=== PATIENT | female | born 1995 | race Caucasian/White ===

== ENCOUNTER 2018-09-25 14:07 | Outpatient (CLI) | payer OTHER ==
--- NOTE | 2018-09-25 16:16 | ULT ---
ULTRASOUND OBSTETRICAL COMPLETE: DATE: 09/25/2018 HISTORY: "Z34.82, encounter for supervision of other normal , second trimester" anatomical survey [id number] female. FINDINGS: number: toro lie: Vertex Maternal cervix: 4 cm. Closed. Placenta: Posterior. No previa. Amniotic fluid volume: NANCY = 12cm heart rate: 158 bpm The following anatomy is visualized, with no evidence of anomalies: Head, cerebellum, lateral ventricles, four-chamber heart, stomach, kidneys, cord insertion, bladder, cervical spine, thoracic spine, lumbar spine, sacrum, nose and lips, upper extremities, lower extreme venous, and three-vessel cord. biometry: Biparietal diameter (BPD): 4.6 cm 20 w 0 d Head circumference (HC): 17.0 cm 19 w 5 d Abdominal circumference (AC): 14.3 cm 19 w 5 d Femur length (FL): 3.2 cm 20 w 0 d Average ultrasound age (AUA): 19 w 6 d Estimated date of delivery (JAVIER): 02/13/2019 Estimated weight (EFW): 314 g +/- 46 g IMPRESSION: 1) Live 2nd trimester intrauterine gestation. 2) Estimated gestational age of 19 weeks, 6 days 3) cephalic lie. 4) no anatomic abnormality identified.
== END 2018-09-25 14:08 | disposition home or self-care (01) ==
LOC: BICULT 14:07
PROVIDERS: ATTEND Family Medicine
DX: Z34.82 Encounter for supervision of other normal pregnancy, second trimester (principal); Z3A.19 19 weeks gestation of pregnancy
CPT/HCPCS: 76805

== ENCOUNTER 2019-02-03 19:30 | Inpatient (IN) | payer OTHER ==
[~2019-02-03 19:30] MED LIST: Bupivacaine/Epinephrine 0.25% 30 ML VIAL ONE
[2019-02-03 22:54] VITALS: BMI 29.2
[2019-02-03] MEDS ORDERED: HYDROcodone/Acetaminophen 5/325 mg Tablet PO PRN (22:54)
[2019-02-03] MEDS ORDERED: Butorphanol Tartrate 1 MG/ML VIAL SLOW IVP PRN (22:54)
[2019-02-03] MEDS ORDERED: Carboprost 250 MCG/ML AMP IM PRN (22:54)
[2019-02-03] MEDS ORDERED: Diphenoxylate HCl/Atropine Tablet PO PRN (22:54)
[2019-02-03] MEDS ORDERED: Ibuprofen 800 MG TAB PO PRN (22:54)
[2019-02-03] MEDS ORDERED: Lidocaine 1% (PF) 30 ML VIAL SC PRN (22:54)
[2019-02-03] MEDS ORDERED: Promethazine HCl 25 MG/ML VIAL IM PRN (22:54)
[2019-02-03] MEDS ORDERED: Methylergonovine 0.2 MG/ML VIAL IM PRN (22:54)
[2019-02-03] MEDS ORDERED: Ondansetron PF 4 MG/2 ML Vial IVP PRN (22:54)
[2019-02-03] MEDS ORDERED: Misoprostol 200 MCG TAB PR PRN (22:54)
[2019-02-03] MEDS ORDERED: NS w/ Oxytocin 10 units 500 ML IV SCH (22:54)
[2019-02-03] MEDS ORDERED: hydrALAZINE 20 MG/ML VIAL SLOW IVP PRN (22:54)
[2019-02-03] MEDS ORDERED: NS / Oxytocin 40 units/1000ml 1,000 ML IV PRN (22:54)
[2019-02-03] MEDS: Lactated Ringer's 1,000 ML IV SCH (23:15)
[2019-02-03 23:30] LABS: Hemoglobin 11.2 g/dL (12.0-16.0); Mean Corpuscular HGB CONC 33.5 g/dL (32.0-36.0); Mean Corpuscular Hemoglobin 27.5 pg (27.0-31.0); Mean Corpuscular Volume 82.2 fL (78.0-98.0); Mean Platelet Volume 7.6 fL (7.4-10.4); Platelet Count 309 thou/uL (130-400); RBC Distribution Width 13.1 % (11.5-14.5); Red Blood Cell (RBC) Count 4.08 mill/uL (4.20-5.40); White Blood Cell (WBC) Count 18.7 thou/uL (4.8-10.8)
[2019-02-03] MEDS: NS w/ Oxytocin 10 units 500 ML IV SCH (23:54)
[2019-02-04 00:06] LABS: HBSAg Index 0.16 S/CO (0-0.99); Hep B Surf Ag Non-Reactive S/CO (NonReactive); Syphilis Antibody Nonreactive (Nonreactive); Syphilis Antibody Index 0.07 S/CO (<1.00 Non-Reactive)
[2019-02-04] MEDS: Misoprostol 100 MCG TAB PO SCH ×4 (00:10→14:56)
[2019-02-04] MEDS ORDERED: Fentanyl 4 mcg/Bup 0.1% Cadd 100 ML ONE (04:16)
[2019-02-04] MEDS ORDERED: Promethazine HCl 25 MG/ML VIAL IM PRN ×2 (05:02→12:52)
[2019-02-04] MEDS ORDERED: Naloxone HCl 0.4 mg/ml Vial IVP PRN ×2 (05:02)
[2019-02-04] MEDS ORDERED: Lactated Ringer's 500 ML IV PRN (05:02)
[2019-02-04] MEDS ORDERED: diphenhydrAMINE 50 MG/ML VIAL IVP PRN (05:02)
[2019-02-04] MEDS ORDERED: ePHEDrine/0.9% NaCl/PF SYRINGE 50 mg/10 ml SLOW IVP PRN (05:02)
[2019-02-04] MEDS ORDERED: Ondansetron PF 4 MG/2 ML Vial IVP PRN ×2 (05:02→12:52)
[2019-02-04] MEDS ORDERED: Acetaminophen 325 MG TAB PO PRN (05:02)
[2019-02-04] MEDS ORDERED: Fentanyl 4 mcg/Bupivacaine 0.1% Cassette 100 ML EPIDURAL SCH (05:15)
[2019-02-04] MEDS ORDERED: Communication Order-Pharmacy FS SCH (05:15)
[2019-02-04] MEDS: NS w/ Oxytocin 10 units 500 ML IV SCH (05:40)
[2019-02-04] MEDS: Ampicillin 2 GM in Sodium Chloride 0.9% 100 ML IVPB SCH ×3 (08:15→21:53)
[2019-02-04] MEDS: Gentamicin Sulfate 270 MG in Sodium Chloride 0.9% 100 ML IVPB SCH (09:30)
[2019-02-04] MEDS ORDERED: Milk Of Magnesia 30 ML UDCUP PO PRN (12:52)
[2019-02-04] MEDS ORDERED: NS / Oxytocin 40 units/1000ml 1,000 ML IV SCH (12:52)
[2019-02-04] MEDS ORDERED: HYDROcodone/Acetaminophen 5/325 mg Tablet PO PRN ×2 (12:52)
[2019-02-04] MEDS ORDERED: diphenhydrAMINE 25 MG CAP PO PRN (12:52)
[2019-02-04] MEDS ORDERED: Bisacodyl 10 MG SUPP PR PRN (12:52)
[2019-02-04] MEDS ORDERED: Lanolin Ointment 7 GM TUBE TOP PRN (12:52)
[2019-02-04] MEDS ORDERED: hydrALAZINE 20 MG/ML VIAL SLOW IVP PRN (12:52)
[2019-02-04] MEDS ORDERED: Preparation H Ointment 28 GM TUBE PR PRN (12:52)
[2019-02-04] MEDS: Lactated Ringer's 1,000 ML IV SCH (14:55)
[2019-02-04] MEDS: Ibuprofen 800 MG TAB PO SCH ×2 (14:58→21:55)
[2019-02-04] MEDS: Ferrous Sulfate 325 MG TAB PO SCH (16:51)
[2019-02-04] MEDS: Docusate Calcium (SURFAK) 240 MG CAP PO SCH (21:55)
[2019-02-05] MEDS: Ampicillin 2 GM in Sodium Chloride 0.9% 100 ML IVPB SCH ×4 (04:08→21:32)
[2019-02-05 05:05] LABS: Hemoglobin 10.6 g/dL (12.0-16.0); Mean Corpuscular HGB CONC 33.3 g/dL (32.0-36.0); Mean Platelet Volume 7.7 fL (7.4-10.4); Platelet Count 255 thou/uL (130-400); RBC Distribution Width 13.5 % (11.5-14.5); Red Blood Cell (RBC) Count 3.79 mill/uL (4.20-5.40); White Blood Cell (WBC) Count 25.7 thou/uL (4.8-10.8)
[2019-02-05] MEDS: Ibuprofen 800 MG TAB PO SCH ×3 (05:34→21:31)
[2019-02-05] MEDS: Prenatal Vitamin 1 TAB PO SCH (08:46)
[2019-02-05] MEDS: Docusate Calcium (SURFAK) 240 MG CAP PO SCH ×2 (08:46→21:32)
[2019-02-05] MEDS: Ferrous Sulfate 325 MG TAB PO SCH ×2 (08:48→16:37)
[2019-02-05] MEDS ORDERED: Adacel (T-DAP) 0.5 ML SYRINGE IM ONE (09:00)
[2019-02-05] MEDS: Gentamicin Sulfate 270 MG in Sodium Chloride 0.9% 100 ML IVPB SCH (09:46)
[2019-02-05] MEDS ORDERED: Sodium Chloride 0.9% 10 ML ONE (21:33)
[2019-02-06] MEDS: Ampicillin 2 GM in Sodium Chloride 0.9% 100 ML IVPB SCH ×2 (04:16→10:06)
[2019-02-06] MEDS ORDERED: Sodium Chloride 0.9% 10 ML ONE ×2 (04:17→08:58)
[2019-02-06] MEDS: Ibuprofen 800 MG TAB PO SCH (05:29)
[2019-02-06 08:30] VITALS: BP 111/71; TEMP 97.6
[2019-02-06] MEDS: Gentamicin Sulfate 270 MG in Sodium Chloride 0.9% 100 ML IVPB SCH (08:55)
[2019-02-06] MEDS: Docusate Calcium (SURFAK) 240 MG CAP PO SCH (08:55)
[2019-02-06] MEDS: Prenatal Vitamin 1 TAB PO SCH (08:55)
[2019-02-06] MEDS: Ferrous Sulfate 325 MG TAB PO SCH (08:56)
--- NOTE | 2019-02-07 22:27 | PQF ---
BRADLY FARRELL ROLAND R MD [id number] CLINICAL DOCUMENTATION CLARIFICATION FORM: POST DISCHARGE Addendum to original discharge summary date: ____ Late entry note date: __ DATE: 02/07/19 ATTN: Shine Chandler Please exercise your independent, professional judgment in responding to the clarification form. Clinical indicators are provided on the bottom of this form for your review Can you please further specify if acute chorioamnionitis is ruled in or ruled out? Acute chorioamnionitis [ x ] Ruled in diagnosis [ ] Continue to treat [x ] Resolved [ ] Ruled out diagnosis [ ] Cannot rule out diagnosis [ ] Other diagnosis [ ] Unable to determine In addition, please specify: Present on Admission (POA): [ ] Yes [ ] No [x ] Unable to determine For continuity of documentation, please document condition throughout progress notes and discharge summary. Thank You. CLINICAL INDICATORS - SIGNS / SYMPTOMS / LABS PTH Surgical specimen 02/06 pg.1- acute chorioamnionitis H and P pg.1- for induction of labor; CHENG Obstetric DS pg.1- Fever Labor and delivery Summary- Delivery complication Chorioamnionitis Microbiology - Placenta culture: Presumptive E.coli Laboratory- WBC 18.7H, 25.7H RISK FACTORS Fever-Obstetric DS pg.1 EGA 39- H and P pg.1 Term IUP- H and P pg.1 TREATMENTS Bacterial Culture- Microbiology 02/04 Ampicillin 2gm IV- MAR 02/04 IV Fluids- MAY (This form is maintained as a part of the permanent medical record) 2014 [employer]. All Rights Reserved [email or web address] [not provided] MTDD
== END 2019-02-06 16:00 | disposition home or self-care (01) | DRG 805 ==
LOC: L&D 22:19 → 3SW 02-04 13:05
PROVIDERS: ADMIT Family Medicine; ATTEND Family Medicine
PROC: 10E0XZZ Delivery of Products of Conception, External Approach (ICD-10-PCS; principal; 2019-02-04)
PROC: 3E0P7VZ Introduction of Hormone into Female Reproductive, Via Natural or Artificial Opening (ICD-10-PCS; 2019-02-04)
PROC: 3E033VJ Introduction of Other Hormone into Peripheral Vein, Percutaneous Approach (ICD-10-PCS; 2019-02-04)
DX: O76 Abnormality in fetal heart rate and rhythm complicating labor and delivery (principal); O41.1230 Chorioamnionitis, third trimester, not applicable or unspecified; Z37.0 Single live birth; Z3A.39 39 weeks gestation of pregnancy
CPT/HCPCS: 36415; 51702; 85027; 86780; 86850; 86900; 86901; 87070; 87076; 87186; 87205; 87340; 88307; J0290; J0690; J1580; J2590; J3490

== ENCOUNTER 2020-04-09 15:38 | Outpatient (CLI) | payer OTHER ==
--- NOTE | 2020-04-09 16:45 | ULT ---
Obstetrical ultrasound: 04/09/2020 HISTORY: 24-year-old female undergoing assessment of anatomy, size and dates TECHNIQUE: Multiplanar grayscale sonographic imaging of the gravid uterus obtained. FINDINGS: Cervical length is approximately 4.1 cm. There is a single intrauterine gestation present d emonstrating a variable presentation per the performing fly finisher. Placenta is located anteriorly with no evidence for placental previa or abruption. The maternal adnexa are not well assessed on this exam. Maternal ovaries could not be visualized. The intracranial contents, nose/lips, spine, four-chamber heart view, stomach, kidneys, urinary bladder, umbilical cord, and umbilical cord insertion site appear within normal limits. Amniotic fluid index is 11.7 cm. biometry: Biparietal diameter 5.5 cm 23 weeks 0 days Head circumference 20.3 cm 22 weeks 3 days Abdominal circumference 18.1 cm 23 weeks 0 days Femur length 4.0 cm 23 weeks 1 day Average age based on ultrasound is 23 weeks 0 days. Estimated weight is 548 g +/- 80 grams (39 percentile). Estimated date of delivery is 08/06/2020 . IMPRESSION: Single intrauterine gestation as detailed above.
== END 2020-04-09 15:39 | disposition home or self-care (01) ==
LOC: BICULT 15:38
PROVIDERS: ATTEND Nurse Practitioner
DX: O99.891 Other specified diseases and conditions complicating pregnancy (principal); R10.2 Pelvic and perineal pain; Z3A.23 23 weeks gestation of pregnancy
CPT/HCPCS: 76805

== ENCOUNTER 2024-01-18 14:27 | Emergency (ER) | payer SELFPAY ==
[2024-01-18 15:21] LABS: #Basophils 0.05 10x3/uL (0.0-0.2); %Basophils 0.5 % (0.0-1.0); %Eosinophils 0.8 % (0.0-10.0); %Lymphocytes 28.1 % (21.0-51.0); %Monocytes 7.4 % (0.0-10.0); %Neutrophils 62.9 % (42.0-75.0); Hematocrit 37.3 % (36.0-47.0); Hemoglobin 12.3 g/dL (12.0-16.0); Mean Platelet Volume 9.1 fL (7.4-10.4); Platelet Count 427 10x3/uL (130-400); RBC Distribution Width 13.1 % (11.5-14.5); Red Blood Cell (RBC) Count 4.24 mill/uL (4.20-5.40)
[2024-01-18 15:47] LABS: BHCG - Serum Negative (NEGATIVE); Pregs Control Background? CLEAR/WHITE (CLR/WHITE); Pregs Control Bar Appear? YES (CONTROL BAR)
[2024-01-18 15:54] LABS: ALT (SGPT) 15 U/L (8-55); AST (SGOT) 14 U/L (5-34); Albumin 4.1 g/dL (3.5-5.0); Alkaline Phosphatase 74 U/L (40-110); Anion Gap 12 mmol/L (10-20); BUN (Urea Nitrogen) 18 mg/dL (7.0-18.7); Bilirubin, Total 0.2 mg/dL (0.2-1.2); Calc. Creatinine Clearance 0 mL/min (70-130); Calcium 9.1 mg/dL (7.8-10.44); Carbon Dioxide 26 mmol/L (22-29); Chloride 108 mmol/L (98-107); Estimated GFR 107; Globulin 3.8 g/dL (2.4-3.5); Glucose 85 mg/dL (70-105); Lipase 17 U/L (8-78); Potassium 3.9 mmol/L (3.5-5.1); Protein, Total 7.9 g/dL (6.0-8.3); Sodium 142 mmol/L (136-145)
[2024-01-18 17:01] LABS: Troponin I Less than 0.010 ng/mL (< 0.028)
== END 2024-01-18 17:38 | disposition home or self-care (01) ==
LOC: ERS 14:27
DX: R07.89 Other chest pain (principal); T38.0X5A Adverse effect of glucocorticoids and synthetic analogues, initial encounter
CPT/HCPCS: 36415; 71045; 80053; 83690; 84484; 84703; 85025; 93005